=== PATIENT | male | born 1970 | race Caucasian/White ===

== ENCOUNTER 2017-11-13 14:00 | Emergency (ER) | payer SELFPAY ==
--- NOTE | 2017-11-13 15:25 | XRay Report ---
FINAL REPORT EXAM: XR FINGER(S) 2+V LT HISTORY: 3rd right digit impaled with a fish hook. TECHNIQUE: 3 views of the left middle finger PRIORS: None. FINDINGS: The visible bones appear intact without acute fracture or dislocation. They are partly obscured by a superimposed metal fishhook lure imbedded in the soft tissues. No definite radiographic involvement of the bones. IMPRESSION: Experiment foreign body imbedded in the soft tissues
[2017-11-13] MEDS ORDERED: TENIVAC IM ONE (17:38)
[2017-11-13] MEDS ORDERED: ANCEF IM ONE (17:39)
[2017-11-13] MEDS ORDERED: LET TOPICAL TP ONE (17:39)
[2017-11-13] MEDS ORDERED: NACL 0.9% IR ONE (17:39)
[2017-11-13] MEDS ORDERED: TRIPLE ANTIBIOTIC TP ONE (17:39)
[2017-11-13] MEDS ORDERED: XYLOCAINE 1% 20 mL INFILTRATI ONE (17:39)
--- NOTE | 2017-11-13 17:39 | Emergency Department Report ---
ED Laceration HPI - HPI Chief Complaint: Extremity Injury, Upper Stated Complaint: FISH HOOK STUCK IN FINGER Time Seen by Provider: 11/13/17 17:38 Occurred When: Today Location: Upper Extremity (finger) Severity: moderate Tetanus Status: Not up to Date Laceration Symptoms: Yes Foreign Body Sensation, Yes Pain, No Numbness, No Weakness ED Review of Systems ROS: Stated complaint: FISH HOOK STUCK IN FINGER Other details as noted in HPI Comment: All other systems reviewed and negative Skin: other (fish hook in finger) ED Past Medical Hx - Past Medical History Hx Hypertension: Yes (Controlled with meds) Hx Diabetes: Yes (Metformin) - Surgical History Past Surgical History?: No - Social History Smoking Status: Never Smoker Substance Use Type: None - Medications Home Medications: Home Medications Medication Instructions Recorded Confirmed Last Taken Type Amoxicillin 500 mg PO BID #20 capsule 11/13/17 Unknown Rx traMADol [Ultram] 50 mg PO Q6HR PRN #12 tablet 11/13/17 Unknown Rx Laceration Physical Exam - Exam General: Vital signs noted. No distress. Alert and acting appropriately. Laceration Location: Upper Extremity Laceration Exam: Yes Foreign Body, Yes Normal Distal CMS, No Exposed Tendon, Vessel, or Nerve, No Tendon Injury ED Course Vital Signs 11/13/17 11/13/17 14:48 14:53 Temperature 98.0 F 98 F Pulse Rate 109 H 109 H Respiratory 20 Rate Blood Pressure 98/65 O2 Sat by Pulse 98 98 Oximetry - Reevaluation(s) Reevaluation #1: 11/13/17 19:12 She presents to the emergency room today with a fish hole in his right middle finger. Patient is speaking but has a family member with him here to translate. Patient needs a tetanus shot. Wire cutters were used after digital block successfully remove the fishhook. Patient is neurovascularly intact. Vital signs are stable. She Has been updated antibiotics initiated. Patient being discharged to home with family. He has discharge instructions and follow-up instructions. Reevaluation #2: 11/13/17 19:13 bp 130/80, hr 88 per provider - Nerve Block Consent Obtained: verbal consent Time Out Performed: Yes Local Anesthetic Used: Lidocaine 1% Amount of anesthesia used: 3 Side: right Nerve Blocks: other (ddigital) Procedure Successful: Yes Complications: none Patient Tolerated Procedure: well ED Medical Decision Making - Radiology Data Radiology results: report reviewed, image reviewed - Medical Decision Making see note - Differential Diagnosis fb Critical care attestation.: If time is entered above; I have spent that time in minutes in the direct care of this critically ill patient, excluding procedure time. ED Disposition Clinical Impression: Fish hook injury of finger Disposition: DC-01 TO HOME OR SELFCARE Is pt being admited?: No Does the pt Need Aspirin: No Condition: Stable Instructions: Soft Tissue Foreign Body (ED), Puncture Wound (ED) Additional Instructions: keep clean with soap and water med as ordered today follow up with pcp next week to be sure healing Prescriptions: Amoxicillin 500 mg PO BID #20 capsule traMADol [Ultram] 50 mg PO Q6HR PRN #12 tablet PRN Reason: Pain Referrals: GLENNA PETERSEN MD [Primary Care Provider] - 3-5 Days Time of Disposition: 18:58
[2017-11-13] MEDS ORDERED: NORCO 5/325 PO ONE (18:00)
[2017-11-13] MEDS ORDERED: BOOSTRIX IM ONE (18:01)
[2017-11-13 19:25] VITALS: BP 116/72
== END 2017-11-13 19:23 | disposition home or self-care (01) ==
LOC: ED 14:00
DX: S60.452A Superficial foreign body of right middle finger, initial encounter (principal); I10 Essential (primary) hypertension; E11.9 Type 2 diabetes mellitus without complications; W45.8XXA Other foreign body or object entering through skin, initial encounter; Y93.89 Activity, other specified; Y92.89 Other specified places as the place of occurrence of the external cause; Y99.8 Other external cause status
CPT/HCPCS: 10120; 73140; 90471; 90715; 96372; 99283; J0690; 90714; A6250